=== PATIENT | female | born 1950 | race Two or more races ===

== ENCOUNTER 2024-01-11 13:47 | Emergency (ER) | payer OTHER ==
[~2024-01-11] VITALS: Ht 144.8 cm; Wt 101.2 kg
[2024-01-11] MEDS ORDERED: GRALISE600 MG PO (14:12)
[2024-01-11] MEDS ORDERED: CAMBIA50 MG PO (14:13)
[2024-01-11] MEDS ORDERED: PRILOSEC OTC20 MG PO (14:13)
[2024-01-11] MEDS ORDERED: VITAMIN D310 MCG/1 M PO (14:13)
[2024-01-11] MEDS ORDERED: LASIX20 MG PO (14:13)
[2024-01-11] MEDS ORDERED: COZAAR50 MG PO (14:13)
[2024-01-11] MEDS ORDERED: CLONAZEPAM2 MG PO (14:14)
[2024-01-11] MEDS ORDERED: KETOROLAC TROMETHAMINE 60 MG VIAL IM ONE (17:30)
[2024-01-11] MEDS ORDERED: ORPHENADRINE CITRATE 30 MG/ML AMPUL IM ONE (17:30)
[2024-01-11] MEDS ORDERED: NORFLEX100MG PO (20:05)
== END 2024-01-11 20:23 ==
LOC: ER 13:47
DX: M54.10 Radiculopathy, site unspecified (principal); I10 Essential (primary) hypertension; Z91.013 Allergy to seafood
CPT/HCPCS: 96372; 99282; J1885; J2360